=== PATIENT | female | born 2000 | race Two or more races ===

== ENCOUNTER 2021-03-27 14:29 | Emergency (ER) | payer OTHER ==
[2021-03-27 14:45] VITALS: BP 118/82; PULSE 78; TEMP 99; BMI 21.9
[2021-03-27] MEDS ORDERED: KETOROLAC TROMETHAMINE 60 MG/2 ML VIAL IM ONE (15:13)
[2021-03-27] MEDS ORDERED: ACETAMINOPHEN 500 MG TABLET (FP) PO ONE (15:14)
[2021-03-27] MEDS ORDERED: METHOCARBAMOL 500 MG TABLET PO ONE (15:14)
[2021-03-27] MEDS ORDERED: LIDOCAINE 5% TOPICAL PATCH TP ONE (15:14)
[2021-03-27] MEDS ORDERED: KETOROLAC TROMETHAMINE 30 MG/1 ML VIAL ONE (15:18)
[2021-03-27] MEDS ORDERED: METHOCARBAMOL 500 MG TABLET ONE (15:18)
[2021-03-27] MEDS ORDERED: LIDOCAINE 5% TOPICAL PATCH ONE (15:18)
[2021-03-27] MEDS ORDERED: ACETAMINOPHEN 500 MG TABLET (FP) ONE (15:19)
== END 2021-03-27 17:03 | disposition home or self-care (01) ==
LOC: JERFT 14:29
PROC: 3E0233Z Introduction of Anti-inflammatory into Muscle, Percutaneous Approach (ICD-10-PCS; principal; 2021-03-27)
DX: M54.41 Lumbago with sciatica, right side (principal)
CPT/HCPCS: 72100-TC-FY; 99284-25